=== PATIENT | male | born 1955 | race Two or more races ===

== ENCOUNTER 2025-02-15 02:22 | Emergency (ER) | payer OTHER ==
[~2025-02-15] VITALS: Ht 172.7 cm; Wt 85.3 kg
[2025-02-15] MEDS ORDERED: HYDROCODONE/APAP 5/325MG TABLET ONE (02:51)
[2025-02-15] MEDS: HYDROCODONE/APAP 5/325MG TABLET PO ONE (03:00)
[2025-02-15] MEDS ORDERED: IBUP-1957 PO (03:58)
[2025-02-15 05:20] VITALS: BP 116/78; TEMP 98.3; O2SAT 97
== END 2025-02-15 05:21 | disposition home or self-care (01) ==
LOC: ER 02:31
DX: S13.4XXA Sprain of ligaments of cervical spine, initial encounter (principal); S39.012A Strain of muscle, fascia and tendon of lower back, initial encounter; S40.012A Contusion of left shoulder, initial encounter; S09.90XA Unspecified injury of head, initial encounter; E11.9 Type 2 diabetes mellitus without complications; Z88.0 Allergy status to penicillin; V43.52XA Car driver injured in collision with other type car in traffic accident, initial encounter; Y93.89 Activity, other specified; Y92.488 Other paved roadways as the place of occurrence of the external cause; Y99.8 Other external cause status
CPT/HCPCS: 70450-TC; 72125-TC; 72131-TC; 73030-TC